=== PATIENT | male | born 1980 | race Caucasian/White ===

== ENCOUNTER 2022-04-04 05:19 | Inpatient (IN) | payer OTHER ==
[2022-04-04] MEDS ORDERED: SODIUM CHLORIDE 0.9% 1,000 ML IV ONE ×2 (06:19)
[2022-04-04] MEDS ORDERED: LORazepam 2 MG/ML INJ IV STA ×3 (06:20→08:29)
[2022-04-04 06:58] LABS: Basophils # (A) 0.1 k/uL (0-0.2); Basophils % (A) 1 %; Eosinophils # (A) 0.1 k/uL (0-0.7); Eosinophils % (A) 1 %; HGB 13.8 gm/dL (13.0-17.5); Lymphocytes # (A) 0.9 k/uL (1.0-4.8); Lymphocytes % (A) 12 %; MCH 32.1 pg (25.0-35.0); MCHC 33.5 g/dL (31.0-37.0); MCV 95.7 fL (80.0-100.0); Mean Platelet Volume 8.1; Monocytes # (A) 0.5 k/uL (0-1.0); Monocytes % (A) 7 %; Neutrophils # (A) 5.8 k/uL (1.3-7.7); Neutrophils % (A) 77 %; Platelet Count 128 k/uL (150-450); RBC 4.29 m/uL (4.30-5.90); RDW 12.4 % (11.5-15.5); WBC 7.6 k/uL (3.8-10.6)
[2022-04-04 07:02] LABS: Appearance,Urine Clear (Clear); Bilirubin,Urine Negative (Negative); Blood,Urine Negative (Negative); Color,Urine Yellow; Glucose,Urine (UA) Negative (Negative); Hyaline Casts,Urine 1 /lpf (0-2); Ketones,Urine 4+ (Negative); Leukocyte Esterase,Urine Negative (Negative); Mucus,Urine Rare /hpf; Nitrite,Urine Negative (Negative); Protein,Urine 1+ (Negative); Specific Gravity,Urine 1.027 (1.001-1.035); WBC,Urine <1 /hpf (0-5)
[2022-04-04 07:14] LABS: ALT 96 U/L (4-49); AST 167 U/L (17-59); African American GFR (CKD) >90 (>60 ml/min/1.73 sqM); Albumin 5.2 g/dL (3.5-5.0); Alcohol <10 mg/dL; Alkaline Phosphatase 59 U/L (38-126); Anion Gap 18 mmol/L; Blood Urea Nitrogen 10 mg/dL (9-20); Calcium 9.5 mg/dL (8.4-10.2); Carbon Dioxide 21 mmol/L (22-30); Chloride 96 mmol/L (98-107); Glucose 93 mg/dL (74-99); Lipase 159 U/L (23-300); Magnesium 1.4 mg/dL (1.6-2.3); Non-African American GFR(CKD) >90 (>60 ml/min/1.73 sqM); Potassium 3.9 mmol/L (3.5-5.1); Sodium 135 mmol/L (137-145); Total Bilirubin 1.9 mg/dL (0.2-1.3); Total Protein 8.9 g/dL (6.3-8.2)
[2022-04-04] MEDS ORDERED: MAGNESIUM SULFATE-D5W PMX 1 GM in DEXTROSE/WATER 1 100ML.BAG IVPB ONE (07:19)
[2022-04-04 07:20] LABS: Cocaine Screen,Urine Not Detected (NotDetected); Phencyclidine Screen,Urine Not Detected (NotDetected); Urn Cannabinoid Scrn Not Detected (NotDetected)
[2022-04-04 07:21] LABS: Amphetamine Screen,Urine Not Detected (NotDetected); Barbiturate Screen,Urine Detected (NotDetected); Benzodiazepines Screen,Urine Not Detected (NotDetected); Methadone Screen, Urine Not Detected (NotDetected); Opiate Screen,Urine Not Detected (NotDetected); Oxycodone Screen, Urine Not Detected (NotDetected); Tricyclic Antidepressant,Urine Not Detected (NotDetected)
--- NOTE | 2022-04-04 07:29 | ED ---
General Adult HPI - General Chief complaint: Altered Mental Status Stated complaint: Hallucinations,Withdrawal Time Seen by Provider: 04/04/22 05:42 Source: patient, EMS, RN notes reviewed Mode of arrival: EMS Limitations: altered mental status - History of Present Illness Initial comments: 41-year-old male presents emergency Department from [facility] for evaluation of alcohol withdrawal, tremors, hallucinations. Patient states that he sat drinking what he believes was 2 weeks ago. Patient went there for rehab alcohol withdrawal. Patient is found to be having severe tremors, has been hallucinating and they refused to give him Ativan as patient reportedly tested positive. He states he isn't sure why he tested positive he is currently on phe nobarbital. States it feels like symptoms are worsening he denies any physical complaints and minimal nausea. - Related Data Home Medications Medication Instructions Recorded Confirmed Acetaminophen Tab [Tylenol] 650 mg PO TID PRN 04/04/22 04/04/22 Calcium/Magnesium/Zinc With 1 tab PO TID 04/04/22 04/04/22 Vitamin D 334/134/5mg Chlorpheniramine Maleate 4 mg PO Q4H PRN 04/04/22 04/04/22 [Chlor-Trimeton] Docusate [Colace] 100 mg PO BID PRN 04/04/22 04/04/22 Hyoscyamine Sulfate [Levsin-Sl] 0.125 mg SL QID PRN 04/04/22 04/04/22 Ibuprofen [Motrin Ib] 600 mg PO Q8H PRN 04/04/22 04/04/22 Loperamide [Imodium] 2 - 4 mg PO QID PRN 04/04/22 04/04/22 Mag Hydrox/Aluminum Hyd/Simeth 30 ml PO Q4H PRN 04/04/22 04/04/22 [Mylanta Maximum Strength Liq] Magnesium Hydroxide [Milk of 2,400 mg PO BID PRN 04/04/22 04/04/22 Magnesia] Multivitamins, Thera [Multivitamin 1 tab PO DAILY PRN 04/04/22 04/04/22 (formulary)] PHENobarbitaL [PHENobarbital] See Taper PO DIRECTED 04/04/22 04/04/22 Thiamine [Vitamin B-1] 100 mg PO DAILY PRN 04/04/22 04/04/22 cloNIDine HCL [Catapres] 0.1 - 0.3 mg PO Q4H 04/04/22 04/04/22 guaiFENesin [guaiFENesin Oral 200 mg PO Q4H PRN 04/04/22 04/04/22 Solution] ondansetron HCL [Zofran] 8 mg PO Q6H PRN 04/04/22 04/04/22 traZODone HCL [Desyrel] 50 - 100 mg PO HS 04/04/22 04/04/22 Allergies Allergy/AdvReac Type Severity Reaction Status Date / Time Penicillins Allergy Rash/Hives Verified 04/04/22 07:17 Review of Systems ROS Statement: Those systems with pertinent positive or pertinent negative responses have been documented in the HPI. ROS Other: All systems not noted in ROS Statement are negative. Past Medical History Past Medical History: No Reported History Past Surgical History: No Surgical Hx Reported Smoking Status: Never smoker Past Alcohol Use History: Heavy Past Drug Use History: None Reported General Exam Limitations: altered mental status General appearance: alert, in no apparent distress Head exam: Present: atraumatic, normocephalic, normal inspection Eye exam: Present: normal appearance, PERRL, EOMI. Absent: scleral icterus, conjunctival injection, periorbital swelling ENT exam: Present: normal exam, normal oropharynx, mucous membranes moist Neck exam: Present: normal inspection, full ROM. Absent: tenderness, meningismus, lymphadenopathy Respiratory exam: Present: normal lung sounds bilaterally. Absent: respiratory distress, wheezes, rales, rhonchi, stridor Cardiovascular Exam: Present: regular rate, normal rhythm, normal heart sounds. Absent: systolic murmur, diastolic murmur, rubs, gallop, clicks Neurological exam: Present: alert, oriented X3, CN II-XII intact Psychiatric exam: Present: anxious Skin exam: Present: warm, dry, intact, normal color. Absent: rash Course Vital Signs 04/04/22 04/04/22 05:23 05:32 Pulse Rate 90 85 Respiratory 18 18 Rate Blood Pressure 115/89 124/92 O2 Sat by Pulse 99 99 Oximetry Medical Decision Making - Lab Data Result diagrams: 04/04/22 06:45 04/04/22 06:45 Lab Results 04/04/22 04/04/22 04/04/22 Range/Units 06:45 06:45 06:45 WBC 7.6 (3.8-10.6) k/uL RBC 4.29 L (4.30-5.90) m/uL Hgb 13.8 (13.0-17.5) gm/dL Hct 41.0 (39.0-53.0) % MCV 95.7 (80.0-100.0) fL MCH 32.1 (25.0-35.0) pg MCHC 33.5 (31.0-37.0) g/dL RDW 12.4 (11.5-15.5) % Plt Count 128 L (150-450) k/uL MPV 8.1 Neutrophils % 77 % Lymphocytes % 12 % Monocytes % 7 % Eosinophils % 1 % Basophils % 1 % Neutrophils # 5.8 (1.3-7.7) k/uL Lymphocytes # 0.9 L (1.0-4.8) k/uL Monocytes # 0.5 (0-1.0) k/uL Eosinophils # 0.1 (0-0.7) k/uL Basophils # 0.1 (0-0.2) k/uL Sodium 135 L (137-145) mmol/L Potassium 3.9 (3.5-5.1) mmol/L Chloride 96 L (98-107) mmol/L Carbon Dioxide 21 L (22-30) mmol/L Anion Gap 18 mmol/L BUN 10 (9-20) mg/dL Creatinine 0.49 L (0.66-1.25) mg/dL Est GFR (CKD-EPI)AfAm >90 (>60 ml/min/1.73 sqM) Est GFR (CKD-EPI)NonAf >90 (>60 ml/min/1.73 sqM) Glucose 93 (74-99) mg/dL Calcium 9.5 (8.4-10.2) mg/dL Magnesium 1.4 L (1.6-2.3) mg/dL Total Bilirubin 1.9 H (0.2-1.3) mg/dL AST 167 H (17-59) U/L ALT 96 H (4-49) U/L Alkaline Phosphatase 59 (38-126) U/L Ammonia (<30) umol/L Total Protein 8.9 H (6.3-8.2) g/dL Albumin 5.2 H (3.5-5.0) g/dL Lipase 159 (23-300) U/L Urine Color Yellow Urine Appearance Clear (Clear) Urine pH 7.0 (5.0-8.0) Ur Specific [place] 1.027 (1.001-1.035) Urine Protein 1+ H (Negative) Urine Glucose (UA) Negative (Negative) Urine Ketones 4+ H (Negative) Urine Blood Negative (Negative) Urine Nitrite Negative (Negative) Urine Bilirubin Negative (Negative) Urine Urobilinogen 2.0 (<2.0) mg/dL Ur Leukocyte Esterase Negative (Negative) Urine WBC <1 (0-5) /hpf Hyaline Casts 1 (0-2) /lpf Urine Mucus Rare H (None) /hpf Urine Opiates Screen Not Detected (NotDetected) Ur Oxycodone Screen Not Detected (NotDetected) Urine Methadone Screen Not Detected (NotDetected) Ur Propoxyphene Screen Not Detected (NotDetected) Ur Barbiturates Screen Detected H (NotDetected) U Tricyclic Antidepress Not Detected (NotDetected) Ur Phencyclidine Scrn Not Detected (NotDetected) Ur Amphetamines Screen Not Detected (NotDetected) U Methamphetamines Scrn Not Detected (NotDetected) U Benzodiazepines Scrn Not Detected (NotDetected) Urine Cocaine Screen Not Detected (NotDetected) U Marijuana (THC) Screen Not Detected (NotDetected) Serum Alcohol <10 mg/dL 04/04/22 Range/Units 06:45 WBC (3.8-10.6) k/uL RBC (4.30-5.90) m/uL Hgb (13.0-17.5) gm/dL Hct (39.0-53.0) % MCV (80.0-100.0) fL MCH (25.0-35.0) pg MCHC (31.0-37.0) g/dL RDW (11.5-15.5) % Plt Count (150-450) k/uL MPV Neutrophils % % Lymphocytes % % Monocytes % % Eosinophils % % Basophils % % Neutrophils # (1.3-7.7) k/uL Lymphocytes # (1.0-4.8) k/uL Monocytes # (0-1.0) k/uL Eosinophils # (0-0.7) k/uL Basophils # (0-0.2) k/uL Sodium (137-145) mmol/L Potassium (3.5-5.1) mmol/L Chloride (98-107) mmol/L Carbon Dioxide (22-30) mmol/L Anion Gap mmol/L BUN (9-20) mg/dL Creatinine (0.66-1.25) mg/dL Est GFR (CKD-EPI)AfAm (>60 ml/min/1.73 sqM) Est GFR (CKD-EPI)NonAf (>60 ml/min/1.73 sqM) Glucose (74-99) mg/dL Calcium (8.4-10.2) mg/dL Magnesium (1.6-2.3) mg/dL Total Bilirubin (0.2-1.3) mg/dL AST (17-59) U/L ALT (4-49) U/L Alkaline Phosphatase (38-126) U/L Ammonia <9 (<30) umol/L Total Protein (6.3-8.2) g/dL Albumin (3.5-5.0) g/dL Lipase (23-300) U/L Urine Color Urine Appearance (Clear) Urine pH (5.0-8.0) Ur Specific [place] (1.001-1.035) Urine Protein (Negative) Urine Glucose (UA) (Negative) Urine Ketones (Negative) Urine Blood (Negative) Urine Nitrite (Negative) Urine Bilirubin (Negative) Urine Urobilinogen (<2.0) mg/dL Ur Leukocyte Esterase (Negative) Urine WBC (0-5) /hpf Hyaline Casts (0-2) /lpf Urine Mucus (None) /hpf Urine Opiates Screen (NotDetected) Ur Oxycodone Screen (NotDetected) Urine Methadone Screen (NotDetected) Ur Propoxyphene Screen (NotDetected) Ur Barbiturates Screen (NotDetected) U Tricyclic Antidepress (NotDetected) Ur Phencyclidine Scrn (NotDetected) Ur Amphetamines Screen (NotDetected) U Methamphetamines Scrn (NotDetected) U Benzodiazepines Scrn (NotDetected) Urine Cocaine Screen (NotDetected) U Marijuana (THC) Screen (NotDetected) Serum Alcohol mg/dL Disposition Clinical Impression: Delirium tremens, Alcohol withdrawal, Hypomagnesemia Disposition: ADMITTED IP TO THIS HOSP Condition: Fair Referrals: Nonstaff,Physician [Primary Care Provider] - 1-2 days Time of Disposition: 07:49
[2022-04-04] MEDS ORDERED: LORazepam 2 MG/ML INJ IV PRN (07:51)
[2022-04-04] MEDS ORDERED: THIAMINE 100 MG/ML 2 ML VIAL IM STA (07:51)
[2022-04-04] MEDS ORDERED: ONDANSETRON 4 MG/2 ML VIAL IVP PRN (08:07)
[2022-04-04] MEDS ORDERED: NALOXONE 0.4 MG/ML 1 ML VIAL IV PRN (08:07)
--- NOTE | 2022-04-04 08:58 | ED ---
Medical Decision Making - Lab Data Result diagrams: 04/04/22 06:45 04/04/22 06:45 Lab Results 04/04/22 04/04/22 04/04/22 Range/Units 06:45 06:45 06:45 WBC 7.6 (3.8-10.6) k/uL RBC 4.29 L (4.30-5.90) m/uL Hgb 13.8 (13.0-17.5) gm/dL Hct 41.0 (39.0-53.0) % MCV 95.7 (80.0-100.0) fL MCH 32.1 (25.0-35.0) pg MCHC 33.5 (31.0-37.0) g/dL RDW 12.4 (11.5-15.5) % Plt Count 128 L (150-450) k/uL MPV 8.1 Neutrophils % 77 % Lymphocytes % 12 % Monocytes % 7 % Eosinophils % 1 % Basophils % 1 % Neutrophils # 5.8 (1.3-7.7) k/uL Lymphocytes # 0.9 L (1.0-4.8) k/uL Monocytes # 0.5 (0-1.0) k/uL Eosinophils # 0.1 (0-0.7) k/uL Basophils # 0.1 (0-0.2) k/uL Sodium 135 L (137-145) mmol/L Potassium 3.9 (3.5-5.1) mmol/L Chloride 96 L (98-107) mmol/L Carbon Dioxide 21 L (22-30) mmol/L Anion Gap 18 mmol/L BUN 10 (9-20) mg/dL Creatinine 0.49 L (0.66-1.25) mg/dL Est GFR (CKD-EPI)AfAm >90 (>60 ml/min/1.73 sqM) Est GFR (CKD-EPI)NonAf >90 (>60 ml/min/1.73 sqM) Glucose 93 (74-99) mg/dL Calcium 9.5 (8.4-10.2) mg/dL Magnesium 1.4 L (1.6-2.3) mg/dL Total Bilirubin 1.9 H (0.2-1.3) mg/dL AST 167 H (17-59) U/L ALT 96 H (4-49) U/L Alkaline Phosphatase 59 (38-126) U/L Ammonia (<30) umol/L Total Protein 8.9 H (6.3-8.2) g/dL Albumin 5.2 H (3.5-5.0) g/dL Lipase 159 (23-300) U/L Urine Color Yellow Urine Appearance Clear (Clear) Urine pH 7.0 (5.0-8.0) Ur Specific [place] 1.027 (1.001-1.035) Urine Protein 1+ H (Negative) Urine Glucose (UA) Negative (Negative) Urine Ketones 4+ H (Negative) Urine Blood Negative (Negative) Urine Nitrite Negative (Negative) Urine Bilirubin Negative (Negative) Urine Urobilinogen 2.0 (<2.0) mg/dL Ur Leukocyte Esterase Negative (Negative) Urine WBC <1 (0-5) /hpf Hyaline Casts 1 (0-2) /lpf Urine Mucus Rare H (None) /hpf Urine Opiates Screen Not Detected (NotDetected) Ur Oxycodone Screen Not Detected (NotDetected) Urine Methadone Screen Not Detected (NotDetected) Ur Propoxyphene Screen Not Detected (NotDetected) Ur Barbiturates Screen Detected H (NotDetected) U Tricyclic Antidepress Not Detected (NotDetected) Ur Phencyclidine Scrn Not Detected (NotDetected) Ur Amphetamines Screen Not Detected (NotDetected) U Methamphetamines Scrn Not Detected (NotDetected) U Benzodiazepines Scrn Not Detected (NotDetected) Urine Cocaine Screen Not Detected (NotDetected) U Marijuana (THC) Screen Not Detected (NotDetected) Serum Alcohol <10 mg/dL 04/04/22 Range/Units 06:45 WBC (3.8-10.6) k/uL RBC (4.30-5.90) m/uL Hgb (13.0-17.5) gm/dL Hct (39.0-53.0) % MCV (80.0-100.0) fL MCH (25.0-35.0) pg MCHC (31.0-37.0) g/dL RDW (11.5-15.5) % Plt Count (150-450) k/uL MPV Neutrophils % % Lymphocytes % % Monocytes % % Eosinophils % % Basophils % % Neutrophils # (1.3-7.7) k/uL Lymphocytes # (1.0-4.8) k/uL Monocytes # (0-1.0) k/uL Eosinophils # (0-0.7) k/uL Basophils # (0-0.2) k/uL Sodium (137-145) mmol/L Potassium (3.5-5.1) mmol/L Chloride (98-107) mmol/L Carbon Dioxide (22-30) mmol/L Anion Gap mmol/L BUN (9-20) mg/dL Creatinine (0.66-1.25) mg/dL Est GFR (CKD-EPI)AfAm (>60 ml/min/1.73 sqM) Est GFR (CKD-EPI)NonAf (>60 ml/min/1.73 sqM) Glucose (74-99) mg/dL Calcium (8.4-10.2) mg/dL Magnesium (1.6-2.3) mg/dL Total Bilirubin (0.2-1.3) mg/dL AST (17-59) U/L ALT (4-49) U/L Alkaline Phosphatase (38-126) U/L Ammonia <9 (<30) umol/L Total Protein (6.3-8.2) g/dL Albumin (3.5-5.0) g/dL Lipase (23-300) U/L Urine Color Urine Appearance (Clear) Urine pH (5.0-8.0) Ur Specific [place] (1.001-1.035) Urine Protein (Negative) Urine Glucose (UA) (Negative) Urine Ketones (Negative) Urine Blood (Negative) Urine Nitrite (Negative) Urine Bilirubin (Negative) Urine Urobilinogen (<2.0) mg/dL Ur Leukocyte Esterase (Negative) Urine WBC (0-5) /hpf Hyaline Casts (0-2) /lpf Urine Mucus (None) /hpf Urine Opiates Screen (NotDetected) Ur Oxycodone Screen (NotDetected) Urine Methadone Screen (NotDetected) Ur Propoxyphene Screen (NotDetected) Ur Barbiturates Screen (NotDetected) U Tricyclic Antidepress (NotDetected) Ur Phencyclidine Scrn (NotDetected) Ur Amphetamines Screen (NotDetected) U Methamphetamines Scrn (NotDetected) U Benzodiazepines Scrn (NotDetected) Urine Cocaine Screen (NotDetected) U Marijuana (THC) Screen (NotDetected) Serum Alcohol mg/dL Disposition Clinical Impression: Delirium tremens, Alcohol withdrawal, Hypomagnesemia Disposition: ADMITTED IP TO THIS [facility] Condition: Fair Procedures - Restraint - Face to Face Restraint Occurrence 1 Patient's Immediate Situation: Endangers self safety, Endangers staff safety Patient's Reaction to the Intervention: Uncooperative Patient's Medical & Behavioral Condition: Awake, Alert, Confused, Visual hallucinations Need to Continue or Terminate Restraint or Seclusion: Continue Face to Face Eval of Restraint Date: 04/04/22 Face to Face Eval of Restraint Time: 08:51
[2022-04-04] MEDS ORDERED: diazePAM 5 MG TAB PO PRN ×2 (09:49→22:50)
[2022-04-04] MEDS ORDERED: diazePAM 5 MG TAB PO STA (09:49)
--- NOTE | 2022-04-04 09:59 | P.HPIM ---
History of Present Illness This is a pleasant 41 years old male with no known past medical history was sent from [place] for alcohol withdrawal. Patient is confused and poor historian and could not provide information it was obtained from the staff from the medical records. Looks like he is last drink was about 2 weeks ago and he went for [place] for alcohol rehab but because of difficulty controlling his withdrawal symptoms including tremor and hallucinating besides the incorporation by the patient and refusing to take medication he was sent to this facility. Also there was concerns about his urine test positive for phenobarbitone. When I saw the patient in the emergency room 13 he was very confused, he thought his brother and mom lives in this place but later on he coul tell that this is [facility] but thought it is in the [place]. He thought it is 2013 and he thought the president is open,. Other than that he could not provide information for example from where he came in, and how much he was drinking. However patient was in restraints and he was agitated and trying to get out all the time, he denies any specific symptom to me he denied headache chest pain or abdominal pain no coughing, no urinary problem, no weakness numbness, no blurred vision He denies smoking to me, denies illicit drugs. Vitals are stable. Platelet count 128, trace of CBC is unremarkable, Sodium 135, creatinine low at 0.4. Bilirubin is elevated at 1.9 and AST was 67 and ALT 96 which are both elevated. Lipase is normal at 159. And urinalysis is suspicious for infection. Screen is positive for barbiturates secreting. Serum alcohol less than 10. Currently there is a sitter at bedside Review of Systems Review of systems CONSTITUTIONAL: No fever, no malaise, no fatigue. HEENT: No recent visual problems or hearing problems. Denied any sore throat. CARDIOVASCULAR: No orthopnea, PND, no palpitations, no syncope. PULMONARY: No shortness of breath, no cough, no hemoptysis. GASTROINTESTINAL: No diarrhea, no nausea, no vomiting, no abdominal pain. Normoactive bowel sounds. NEUROLOGICAL: No headaches, no weakness, no numbness. HEMATOLOGICAL: Denies any bleeding or petechiae. GENITOURINARY: Denies any burning micturition, frequency, or urgency. MUSCULOSKELETAL/RHEUMATOLOGICAL: Denies any joint pain, swelling, or any muscle pain. ENDOCRINE: Denies any polyuria or polydipsia. Past Medical History Past Medical History: No Reported History Past Surgical History: No Surgical Hx Reported Smoking Status: Never smoker Past Alcohol Use History: Heavy Past Drug Use History: None Reported Medications and Allergies Home Medications Medication Instructions Recorded Confirmed Type Acetaminophen Tab [Tylenol] 650 mg PO TID PRN 04/04/22 04/04/22 History Calcium/Magnesium/Zinc With 1 tab PO TID 04/04/22 04/04/22 History Vitamin D 334/134/5mg Chlorpheniramine Maleate 4 mg PO Q4H PRN 04/04/22 04/04/22 History [Chlor-Trimeton] Docusate [Colace] 100 mg PO BID PRN 04/04/22 04/04/22 History Hyoscyamine Sulfate [Levsin-Sl] 0.125 mg SL QID PRN 04/04/22 04/04/22 History Ibuprofen [Motrin Ib] 600 mg PO Q8H PRN 04/04/22 04/04/22 History Loperamide [Imodium] 2 - 4 mg PO QID PRN 04/04/22 04/04/22 History Mag Hydrox/Aluminum Hyd/Simeth 30 ml PO Q4H PRN 04/04/22 04/04/22 History [Mylanta Maximum Strength Liq] Magnesium Hydroxide [Milk of 2,400 mg PO BID PRN 04/04/22 04/04/22 History Magnesia] Multivitamins, Thera [Multivitamin 1 tab PO DAILY PRN 04/04/22 04/04/22 History (formulary)] PHENobarbitaL [PHENobarbital] See Taper PO DIRECTED 04/04/22 04/04/22 History Thiamine [Vitamin B-1] 100 mg PO DAILY PRN 04/04/22 04/04/22 History cloNIDine HCL [Catapres] 0.1 - 0.3 mg PO Q4H 04/04/22 04/04/22 History guaiFENesin [guaiFENesin Oral 200 mg PO Q4H PRN 04/04/22 04/04/22 History Solution] ondansetron HCL [Zofran] 8 mg PO Q6H PRN 04/04/22 04/04/22 History traZODone HCL [Desyrel] 50 - 100 mg PO HS 04/04/22 04/04/22 History Allergies Allergy/AdvReac Type Severity Reaction Status Date / Time Penicillins Allergy Rash/Hives Verified 04/04/22 07:17 Physical Exam Vitals: Vital Signs Pulse Resp BP Pulse Ox 04/04/22 05:32 85 18 124/92 99 04/04/22 05:23 90 18 115/89 99 Intake and Output 04/03/22 04/04/22 04/04/22 22:59 06:59 14:59 Other: Weight 72.575 kg -GENERAL: The patient is awake confused, agitated and on the restraints. Well developed, well nourished. HEENT: Pupils are round and equally reacting to light. EOMI. No scleral icterus. No conjunctival pallor. Normocephalic, atraumatic. No pharyngeal erythema. No thyromegaly. CARDIOVASCULAR: S1 and S2 present. No murmurs, rubs, or gallops. PULMONARY: Chest is clear to auscultation, no wheezing or crackles. ABDOMEN: Soft, nontender, nondistended, normoactive bowel sounds. No palpable organomegaly. MUSCULOSKELETAL: No joint swelling or deformity. EXTREMITIES: No cyanosis, clubbing, or pedal edema. NEUROLOGICAL: Gross neurological examination did not reveal any focal deficits. SKIN: No rashes. no petechiae. Results CBC & Chem 7: 04/04/22 06:45 04/04/22 06:45 Labs: Abnormal Lab Results - Last 24 Hours (Table) 04/04/22 04/04/22 04/04/22 Range/Units 06:45 06:45 06:45 RBC 4.29 L (4.30-5.90) m/uL Plt Count 128 L (150-450) k/uL Lymphocytes # 0.9 L (1.0-4.8) k/uL Sodium 135 L (137-145) mmol/L Chloride 96 L (98-107) mmol/L Carbon Dioxide 21 L (22-30) mmol/L Creatinine 0.49 L (0.66-1.25) mg/dL Magnesium 1.4 L (1.6-2.3) mg/dL Total Bilirubin 1.9 H (0.2-1.3) mg/dL AST 167 H (17-59) U/L ALT 96 H (4-49) U/L Total Protein 8.9 H (6.3-8.2) g/dL Albumin 5.2 H (3.5-5.0) g/dL Urine Protein 1+ H (Negative) Urine Ketones 4+ H (Negative) Urine Mucus Rare H (None) /hpf Ur Barbiturates Screen Detected H (NotDetected) Assessment and Plan Assessment: Alcohol use disorder with severe delirium tremens Hallucination and agitation secondary to above, rule out intracranial lesions. Altered mental status secondary to metabolic/toxic encephalopathy secondary to both Alcoholic transaminitis Thrombocytopenia most likely secondary to alcohol affect Plan: Continue with IV hydration Continue with vitamins including Continue with CIWA protocol Continue with volume IV when necessary replace Rx was per protocol We'll do a CT of the brain to rule out intracranial lesion Sitter at bedside or safety Psychiatric team were consulted Labs and medication were reviewed.. Continue same treatment. Continue with symptomatic treatment. Resume home medication. Monitor labs and vitals. DVT and GI prophylaxis. Further recommendations as per clinical course of the patient DVT prophylaxis: Subcutaneous heparin pending CT of the brain) ( GI Prophylaxis: Pepcid Prognosis is guarded
[2022-04-04] MEDS: LORazepam 2 MG/ML INJ IV PRN ×8 (10:12→23:40)
[2022-04-04] MEDS: SODIUM CHLORIDE 0.9% 1,000 ML IV SCH ×3 (10:38→23:29)
[2022-04-04] MEDS: chlordiazePOXIDE 25 MG CAP PO SCH (21:08)
--- NOTE | 2022-04-05 00:31 | CT ---
EXAMINATION TYPE: CT brain wo con DATE OF EXAM: 04/04/2022 COMPARISON: None HISTORY: CONFUSION, ETOH W/D, DTs CT DLP: 1143 mGycm Automated exposure control for dose reduction was used. Images obtained of the brain with no contrast. Ventricles have normal size. There is no mass effect nor midline shift. No sign of intracranial hemor rhage. Calvarium is intact. Skull base is intact. There is normal aeration of the mastoid sinuses. IMPRESSION: Negative unenhanced head CT scan. Mucous retention cysts are noted in both maxillary sinuses.
[2022-04-05 01:26] LABS: Glucose,Whole Blood 96 mg/dL (70-110)
--- NOTE | 2022-04-05 02:19 | CONS ---
DATE OF SERVICE: 04/04/2022 CONSULTATION Psychiatric Consultation REASON FOR CONSULTATION: Evaluate for delirium tremens. HISTORY OF PRESENTING ILLNESS: The patient is a 41-year-old male. According to the history of Dr. Gay, he presented as referral from [place]. He had stopped drinking about 2 weeks ago. He went in to [place] for alcohol rehab. In [place], he was having significant withdrawal symptoms including tremor and hallucinations, he was refusing medications. Urine drug screen did test positive for barbiturates. He was transferred to the ED for evaluation. Since in the ED, the patient has been confused and very disoriented. He is not able to provide any reliable information. As per Dr. Gay, he thought his mother and brother lived where he was at, but apparently he said it was [facility] but thought it was [place], thought it was [facility]. In the ED, he has been in a very restless and agitated state requiring restraints to protect his safety. Vital signs have been in the normal range, for the most part lab work is unremarkable. MENTAL STATUS EXAMINATION: When I saw the patient, he was sitting up in the hospital bed with hands and legs restrained. He was quite restless. He said various words though he did not say anything that was coded. He did not respond to any questions that I asked, even very basic questions such as where did he think he was at. He was awake and fairly alert though did not seem to be able to focus on anything in particular. He could put 2 or 3 words together in a phrase though was not able to communicate in complete sentences. Most of what he said was random with one thought disconnected from the next. ASSESSMENT: According to medical record, the patient would have stopped alcohol use about 2 weeks ago. Thus in general this would be beyond the stage for the patient to be suffering from alcohol related delirium tremens. Typically delirium tremens presents in the first 48 hours and resolves in 3 to 5 days with some cases extending up to 8 or 10 days. There is a question that he may have urinary tract infection and infections can prolong DTs. A second consideration is that he may have a delirium tremens relating to barbiturate withdrawal. They had no information in regard to barbiturate exposure though delirium tremens relating to barbiturate withdrawal can last over couple of weeks or more. For the most part, his vital signs are stable. I did advise the nurse to monitor temperature and for diaphoresis which are the 2 critical signs relating to detox and DTs. Might be consideration from switching the patient from Ativan to phenobarbital and to initiate a phenobarbital taper as his presentation would be more likely related to barbiturate withdrawal if he was using a barbiturate where such as phenobarbital the period of withdrawal, detox, and delirium tremens can be quite prolonged. At this point, it is not clear that there is further need for psychiatric intervention as the primary issue is related to detox, at least reconsult psychiatry as additional concerns arise. MMODL / IJN: [id number] / JOANNA
[2022-04-05 04:55] LABS: Basophils % (A) 1 %; Eosinophils # (A) 0.1 k/uL (0-0.7); Eosinophils % (A) 2 %; HCT 35.2 % (39.0-53.0); HGB 11.9 gm/dL (13.0-17.5); Lymphocytes # (A) 0.9 k/uL (1.0-4.8); Lymphocytes % (A) 14 %; MCH 32.5 pg (25.0-35.0); MCHC 33.8 g/dL (31.0-37.0); Mean Platelet Volume 8.2; Monocytes # (A) 0.7 k/uL (0-1.0); Monocytes % (A) 10 %; Neutrophils # (A) 4.5 k/uL (1.3-7.7); Neutrophils % (A) 70 %; Platelet Count 123 k/uL (150-450); RBC 3.67 m/uL (4.30-5.90); WBC 6.4 k/uL (3.8-10.6)
[2022-04-05 05:11] LABS: ALT 79 U/L (4-49); AST 132 U/L (17-59); African American GFR (CKD) >90 (>60 ml/min/1.73 sqM); Alkaline Phosphatase 45 U/L (38-126); Anion Gap 13 mmol/L; Bilirubin, Delta 0.5 mg/dL (0.0-0.2); Bilirubin,Unconjugated 0.7 mg/dL (0.0-1.1); Blood Urea Nitrogen 5 mg/dL (9-20); Carbon Dioxide 20 mmol/L (22-30); Chloride 104 mmol/L (98-107); Glucose 84 mg/dL (74-99); Magnesium 1.6 mg/dL (1.6-2.3); Non-African American GFR(CKD) >90 (>60 ml/min/1.73 sqM); Potassium 3.4 mmol/L (3.5-5.1); Sodium 137 mmol/L (137-145); Total Bilirubin 1.2 mg/dL (0.2-1.3); Total Protein 6.8 g/dL (6.3-8.2)
[2022-04-05] MEDS ORDERED: Potassium Replacement Protocol 1 EACH MISC MISCELLANE PRN (05:14)
[2022-04-05] MEDS ORDERED: Magnesium Replacement Protocol 1 EACH MISC MISCELLANE PRN (05:15)
[2022-04-05] MEDS: MAGNESIUM SULFATE-D5W PMX 1 GM in DEXTROSE/WATER 1 100ML.BAG IVPB SCH ×2 (05:35→06:52)
[2022-04-05] MEDS: POTASSIUM CHLORIDE ER 20 MEQ TAB.ER PO SCH ×2 (05:35→06:52)
[2022-04-05] MEDS: SODIUM CHLORIDE 0.9% 1,000 ML IV SCH ×3 (07:26→21:37)
[2022-04-05 07:47] LABS: Appearance,Urine Clear (Clear); Bilirubin,Urine Negative (Negative); Blood,Urine Negative (Negative); Color,Urine Yellow; Glucose,Urine (UA) Negative (Negative); Ketones,Urine 3+ (Negative); Leukocyte Esterase,Urine Negative (Negative); Nitrite,Urine Negative (Negative); Protein,Urine Negative (Negative); Specific Gravity,Urine 1.018 (1.001-1.035)
[2022-04-05] MEDS: THIAMINE 100 MG/ML 2 ML VIAL IVP SCH (08:29)
[2022-04-05] MEDS: chlordiazePOXIDE 25 MG CAP PO SCH ×2 (08:29→13:09)
[2022-04-05] MEDS ORDERED: THIAMINE 100 MG TAB PO SCH (09:00)
[2022-04-05] MEDS: LORazepam 2 MG/ML INJ IV PRN ×2 (11:59→20:17)
--- NOTE | 2022-04-05 12:54 | P.CNPUL ---
History of Present Illness Consult date: 04/05/22 Requesting physician: Henrique Gay Reason for consult: other Chief complaint: acute alcohol withdrawal History of present illness: this is a 41-year-old white male, known history of alcohol abuse, patient was sent from [place] for alcohol withdrawal. Patient has been demonstrating episodes of confusion, agitation, and at times tremors and hallucinations. Patient apparently was refusing to take medications at the facility where he was sent from.patient was brought into the ER, and apparently he was quite confused, he was requiring restraints, was extremely agitated, his labs were basically unremarkable. Patient tested positive for barbiturates. His alcohol level was less than 10. Patient was admitted to the ICU mostly because he was requiring significant amount of sedation to calm him down, I saw him this morning, the patient seems to be calm, much better compared to how he was described to be on admission. Patient remains on the CIWA protocol, in no distress. He is alert oriented 3, and clearly not agitated but slightly anxious. Review of Systems CONSTITUTIONAL: negative. HEENT: negative. CARDIOVASCULAR: negative PULMONARY: no shortness of breath cough or wheezing no chest pain.. GASTROINTESTINAL: no nausea vomiting abdominal pain melena or hematemesis. NEUROLOGICAL: negative.. HEMATOLOGICAL: negative. GENITOURINARY: negative MUSCULOSKELETAL/RHEUMATOLOGICAL: negative.. ENDOCRINE:negative Past Medical History Past Medical History: No Reported History History of Any Multi-Drug Resistant Organisms: None Reported Past Surgical History: No Surgical Hx Reported Additional Past Surgical History / Comment(s): Inginal hernia repair Smoking Status: Never smoker Medications and Allergies Home Medications Medication Instructions Recorded Confirmed Type Acetaminophen Tab [Tylenol] 650 mg PO TID PRN 04/04/22 04/04/22 History Calcium/Magnesium/Zinc With 1 tab PO TID 04/04/22 04/04/22 History Vitamin D 334/134/5mg Chlorpheniramine Maleate 4 mg PO Q4H PRN 04/04/22 04/04/22 History [Chlor-Trimeton] Docusate [Colace] 100 mg PO BID PRN 04/04/22 04/04/22 History Hyoscyamine Sulfate [Levsin-Sl] 0.125 mg SL QID PRN 04/04/22 04/04/22 History Ibuprofen [Motrin Ib] 600 mg PO Q8H PRN 04/04/22 04/04/22 History Loperamide [Imodium] 2 - 4 mg PO QID PRN 04/04/22 04/04/22 History Mag Hydrox/Aluminum Hyd/Simeth 30 ml PO Q4H PRN 04/04/22 04/04/22 History [Mylanta Maximum Strength Liq] Magnesium Hydroxide [Milk of 2,400 mg PO BID PRN 04/04/22 04/04/22 History Magnesia] Multivitamins, Thera [Multivitamin 1 tab PO DAILY PRN 04/04/22 04/04/22 History (formulary)] PHENobarbitaL [PHENobarbital] See Taper PO DIRECTED 04/04/22 04/04/22 History Thiamine [Vitamin B-1] 100 mg PO DAILY PRN 04/04/22 04/04/22 History cloNIDine HCL [Catapres] 0.1 - 0.3 mg PO Q4H 04/04/22 04/04/22 History guaiFENesin [guaiFENesin Oral 200 mg PO Q4H PRN 04/04/22 04/04/22 History Solution] ondansetron HCL [Zofran] 8 mg PO Q6H PRN 04/04/22 04/04/22 History traZODone HCL [Desyrel] 50 - 100 mg PO HS 04/04/22 04/04/22 History Allergies Allergy/AdvReac Type Severity Reaction Status Date / Time Penicillins Allergy Rash/Hives Verified 04/04/22 07:17 Physical Exam Vitals: Vital Signs Temp Pulse Resp BP BP Pulse Ox 04/05/22 12:00 88 22 117/94 99 04/05/22 11:49 98.6 F 04/05/22 11:00 91 14 125/89 95 04/05/22 10:00 79 16 125/112 98 04/05/22 09:00 80 16 124/87 98 04/05/22 08:00 98.2 F 85 22 124/87 98 04/05/22 07:00 97 15 145/118 94 L 04/05/22 06:09 98.5 F 145/118 96 04/05/22 06:00 89 20 123/84 95 04/05/22 05:00 80 22 120/91 95 04/05/22 04:00 98.1 F 74 24 120/91 96 04/05/22 03:00 76 22 122/82 95 04/05/22 02:00 85 27 H 127/82 96 04/05/22 01:25 99.7 F H 132/101 04/05/22 00:51 98.8 F 88 18 167/95 98 04/04/22 23:22 82 18 97 04/04/22 22:42 98.0 F 85 18 157/82 98 04/04/22 18:00 109 H 18 148/86 98 Intake and Output 04/04/22 04/05/22 04/05/22 22:59 06:59 14:59 Intake Total 750 1618 Output Total 0 550 Balance 750 1068 Intake: IV 750 900 Invasive Line 2 20 Magnesium Sulfate-D5w Pmx 100 100 1 gm In Dextrose/Water 1 100ml.bag @ 100 mls/hr IVPB ONCE ONE Rx#: [id number] Sodium Chloride 0.9% 1, 650 780 000 ml @ 130 mls/hr IV . Q7H42M [facility] Rx#:[id number] Oral 718 Output: Urine 0 550 Other: Voiding Method Urinal Urinal # Bowel Movements 0 Weight 72.575 kg Physical Exam: Revealed 41-year-old white male in no distress. Head: Atraumatic normocephalic. HEENT:[Neck is supple.] [No neck masses.] [No thyromegaly.] [No JVD.] Chest: [Clear throughout, no crackles, no rhonchi, no wheezes.] Cardiac Exam: [Normal S1 and S2, no S3 gallop, no murmur.] Abdomen: [Soft, nontender, no megaly, no rebound, no guarding, normal bowel sounds.] Extremities: [No clubbing, no edema, no cyanosis.] Neurological Exam: alert and oriented 3.[No focal neurologic deficit.] psychiatric: Slightly anxious, normal affect, and normal mental status examination. Skin: No rashes Results - Laboratory Findings CBC and BMP: 04/05/22 04:28 04/05/22 09:03 Abnormal lab findings: Abnormal Labs 04/04/22 04/04/22 04/04/22 06:45 06:45 06:45 RBC 4.29 L Hgb Hct Plt Count 128 L Lymphocytes # 0.9 L Sodium 135 L Potassium Chloride 96 L Carbon Dioxide 21 L BUN Creatinine 0.49 L Calcium Magnesium 1.4 L Total Bilirubin 1.9 H Delta Bilirubin AST 167 H ALT 96 H Total Protein 8.9 H Albumin 5.2 H Urine Protein 1+ H Urine Ketones 4+ H Urine Mucus Rare H Ur Barbiturates Screen Detected H 04/05/22 04/05/22 04/05/22 04:28 04:28 06:45 RBC 3.67 L Hgb 11.9 L Hct 35.2 L Plt Count 123 L Lymphocytes # 0.9 L Sodium Potassium 3.4 L Chloride Carbon Dioxide 20 L BUN 5 L Creatinine 0.50 L Calcium 8.0 L Magnesium Total Bilirubin Delta Bilirubin 0.5 H AST 132 H ALT 79 H Total Protein Albumin Urine Protein Urine Ketones 3+ H Urine Mucus Ur Barbiturates Screen - Diagnostic Findings Additional studies: CT brain on admission was basically unremarkable. Assessment and Plan Assessment: impression: Acute alcohol withdrawal Acute delirium tremens Thrombocytopenia secondary to chronic alcohol use. Recommendation: Continue to monitor in the ICU. Continue CIWA protocol. Continue IV fluids. Psychiatry did see on consultation. GI and DVT prophylaxis. We'll continue to follow while in ICU Time with Patient: Greater than 30
[2022-04-05] MEDS ORDERED: chlordiazePOXIDE 25 MG CAP PO SCH ×2 (16:45→22:00)
[2022-04-05] MEDS: HEPARIN SODIUM,PORCINE/PF 5,000 UNIT/0.5 ML SYRINGE SQ SCH (16:56)
[2022-04-05] MEDS ORDERED: POTASSIUM CHLORIDE ER 20 MEQ TAB.ER PO SCH (17:00)
[2022-04-05] MEDS: PANTOPRAZOLE 40 MG/10 ML VIAL IVP SCH (21:36)
--- NOTE | 2022-04-05 21:58 | P.PN ---
Subjective This is a pleasant 41 years old male with no known past medical history was sent from [facility] for alcohol withdrawal. Patient is confused and poor historian and could not provide information it was obtained from the staff from the medical records. Looks like he is last drink was about 2 weeks ago and he went for [facility] for alcohol rehab but because of difficulty controlling his withdrawal symptoms including tremor and hallucinating besides the incorporation by the patient and refusing to take medication he was sent to this facility. Also there was concerns about his urine test positive for phenobarbitone. When I saw the patient in the emergency room 13 he was very confused, he thought his brother and mom lives in this place but later on he coul tell that this is [facility] but thought it is in the [place]. He thought it is 2013 and he thought the president is open,. Other than that he could not provide information for example from where he came in, and how much he was drinking. However patient was in restraints and he was agitated and trying to get out all the time, he denies any specific symptom to me he denied headache chest pain or abdominal pain no coughing, no urinary problem, no weakness numbness, no blurred vision He denies smoking to me, denies illicit drugs. Vitals are stable. Platelet count 128, trace of CBC is unremarkable, Sodium 135, creatinine low at 0.4. Bilirubin is elevated at 1.9 and AST was 67 and ALT 96 which are both elevated. Lipase is normal at 159. And urinalysis is suspicious for infection. Screen is positive for barbiturates secreting. Serum alcohol less than 10. Currently there is a sitter at bedside 04/05/2022 Patient is more awake, more calm he is fully awake and oriented and medication back to normal, no hallucination no agitation. He has normal conversation Recent taken off no sitter at bedside. He still have some withdrawal symptoms leg tremor jitteriness and anxiety. But he is not Muslim himself and others anymore. Labs looks better, platelet 123 liver enzymes trending down as well as bilirubin. CIWA scored is improving with a range of 0-13. He has low-grade temp 9.7 with no evidence of infection so far Remains on CIWA protocol, Librium increased to 50 mg 3 times a day, he is on subcutaneous heparin and Protonix twice a day Psychiatric and pulmonary input is appreciated We'll keep monitoring in the ICU for now Objective - Vital Signs Vital signs: Vital Signs Temp 98.6 F 04/05/22 20:00 Pulse 73 04/05/22 21:00 Resp 16 04/05/22 21:00 BP 136/98 04/05/22 21:00 Pulse Ox 96 04/05/22 21:00 FiO2 Intake & Output 04/05/22 04/05/22 04/06/22 06:59 18:59 06:59 Intake Total 750 2408 770 Output Total 0 1250 300 Balance 750 1158 470 Weight 72.575 kg Intake: IV 750 1690 530 Invasive Line 2 30 10 Magnesium Sulfate-D5w Pmx 100 100 1 gm In Dextrose/Water 1 100ml.bag @ 100 mls/hr IVPB ONCE ONE Rx#: [id number] Sodium Chloride 0.9% 1, 650 1560 520 000 ml @ 130 mls/hr IV . Q7H42M [facility] Rx#:[id number] Oral 718 240 Output: Urine 0 1250 300 Other: Voiding Method Urinal External Catheter External Catheter # Bowel Movements 1 0 - Exam -GENERAL: The patient is alert and oriented x3, not in any acute distress. Well developed, well nourished. Jittery, nervousness with some tremor HEENT: Pupils are round and equally reacting to light. EOMI. No scleral icterus. No conjunctival pallor. Normocephalic, atraumatic. No pharyngeal erythema. No thyromegaly. CARDIOVASCULAR: S1 and S2 present. No murmurs, rubs, or gallops. PULMONARY: Chest is clear to auscultation, no wheezing or crackles. ABDOMEN: Soft, nontender, nondistended, normoactive bowel sounds. No palpable organomegaly. MUSCULOSKELETAL: No joint swelling or deformity. EXTREMITIES: No cyanosis, clubbing, or pedal edema. NEUROLOGICAL: Gross neurological examination did not reveal any focal deficits. SKIN: No rashes. no petechiae. - Labs CBC & Chem 7: 04/05/22 04:28 04/05/22 19:55 Labs: Abnormal Lab Results - Last 24 Hours (Table) 04/05/22 04/05/22 04/05/22 Range/Units 04:28 04:28 06:45 RBC 3.67 L (4.30-5.90) m/uL Hgb 11.9 L (13.0-17.5) gm/dL Hct 35.2 L (39.0-53.0) % Plt Count 123 L (150-450) k/uL Lymphocytes # 0.9 L (1.0-4.8) k/uL Potassium 3.4 L (3.5-5.1) mmol/L Carbon Dioxide 20 L (22-30) mmol/L BUN 5 L (9-20) mg/dL Creatinine 0.50 L (0.66-1.25) mg/dL Calcium 8.0 L (8.4-10.2) mg/dL Delta Bilirubin 0.5 H (0.0-0.2) mg/dL AST 132 H (17-59) U/L ALT 79 H (4-49) U/L Urine Ketones 3+ H (Negative) Assessment and Plan Assessment: Alcohol use disorder with severe delirium tremens Hallucination and agitation secondary to above, rule out intracranial lesions. Altered mental status secondary to metabolic/toxic encephalopathy secondary to both Alcoholic transaminitis Thrombocytopenia most likely secondary to alcohol affect Plan: Continue with IV hydration Continue with vitamins i Continue with CIWA protocol Continue with volume , Librium replace electrolytes was per protocol Pulmonary consult Psychiatric team were consulted and evaluated the patient already Labs and medication were reviewed.. Continue same treatment. Continue with symptomatic treatment. Resume home medication. Monitor labs and vitals. DVT and GI prophylaxis. Further recommendations as per clinical course of the patient DVT prophylaxis: Subcutaneous heparin GI Prophylaxis: Pepcid Prognosis is guarded
[2022-04-06 06:06] LABS: Basophils % (A) 1 %; Eosinophils # (A) 0.1 k/uL (0-0.7); Eosinophils % (A) 3 %; HCT 36.3 % (39.0-53.0); Lymphocytes # (A) 0.9 k/uL (1.0-4.8); Lymphocytes % (A) 22 %; MCH 31.9 pg (25.0-35.0); MCHC 33.1 g/dL (31.0-37.0); MCV 96.2 fL (80.0-100.0); Mean Platelet Volume 8.4; Monocytes # (A) 0.4 k/uL (0-1.0); Monocytes % (A) 10 %; Neutrophils # (A) 2.5 k/uL (1.3-7.7); Neutrophils % (A) 62 %; Platelet Count 119 k/uL (150-450); RBC 3.77 m/uL (4.30-5.90)
[2022-04-06 06:21] LABS: African American GFR (CKD) >90 (>60 ml/min/1.73 sqM); Anion Gap 6 mmol/L; Blood Urea Nitrogen 4 mg/dL (9-20); Calcium 7.8 mg/dL (8.4-10.2); Carbon Dioxide 21 mmol/L (22-30); Chloride 110 mmol/L (98-107); Glucose 97 mg/dL (74-99); Non-African American GFR(CKD) >90 (>60 ml/min/1.73 sqM); Potassium 3.5 mmol/L (3.5-5.1); Sodium 137 mmol/L (137-145)
[2022-04-06] MEDS: SODIUM CHLORIDE 0.9% 1,000 ML IV SCH ×2 (06:30→13:01)
[2022-04-06] MEDS: POTASSIUM CHLORIDE ER 20 MEQ TAB.ER PO SCH ×4 (07:07→13:01)
[2022-04-06] MEDS: MAGNESIUM SULFATE-D5W PMX 1 GM in DEXTROSE/WATER 1 100ML.BAG IVPB SCH ×2 (07:07→10:47)
[2022-04-06] MEDS: chlordiazePOXIDE 25 MG CAP PO SCH ×2 (10:47→14:50)
[2022-04-06] MEDS: HEPARIN SODIUM,PORCINE/PF 5,000 UNIT/0.5 ML SYRINGE SQ SCH (10:48)
[2022-04-06] MEDS: PANTOPRAZOLE 40 MG/10 ML VIAL IVP SCH (10:49)
[2022-04-06] MEDS: THIAMINE 100 MG/ML 2 ML VIAL IVP SCH (10:49)
[2022-04-06] MEDS: LORazepam 2 MG/ML INJ IV PRN (10:59)
--- NOTE | 2022-04-06 12:28 | P.PN ---
Subjective Progress Note Date: 04/06/22 Principal diagnosis: Acute alcohol withdrawal this is a 41-year-old white male, known history of alcohol abuse, patient was sent from [place] for alcohol withdrawal. Patient has been demonstrating episodes of confusion, agitation, and at times tremors and hallucinations. P nasreen apparently was refusing to take medications at the facility where he was sent from.patient was brought into the ER, and apparently he was quite confused, he was requiring restraints, was extremely agitated, his labs were basically unremarkable. Patient tested positive for barbiturates. His alcohol level was less than 10. Patient was admitted to the ICU mostly because he was requiring significant amount of sedation to calm him down, I saw him this morning, the patient seems to be calm, much better compared to how he was described to be on admission. Patient remains on the CIWA protocol, in no distress. He is alert oriented 3, and clearly not agitated but slightly anxious Reevaluated today on 04/06/22, patient remains in the ICU, he is actually an overflow, remains on the CIWA protocol, he is on room air, not in any distress. I will clear the patient to be transferred out of the ICU or even go back to his [facility] facility. Objective - Vital Signs Vital signs: Vital Signs Temp 98 F 04/06/22 08:00 Pulse 76 04/06/22 11:00 Resp 18 04/06/22 11:00 BP 133/102 04/06/22 11:00 Pulse Ox 100 04/06/22 11:00 FiO2 Intake & Output 04/05/22 04/06/22 04/06/22 18:59 06:59 18:59 Intake Total 2408 1830 870 Output Total 1250 300 300 Balance 1158 1530 570 Weight 76.6 kg Intake: IV 1690 1590 620 Invasive Line 2 30 30 Magnesium Sulfate-D5w Pmx 100 100 1 gm In Dextrose/Water 1 100ml.bag @ 100 mls/hr IVPB ONCE ONE Rx#: [id number] Sodium Chloride 0.9% 1, 1560 1560 520 000 ml @ 130 mls/hr IV . Q7H42M [facility] Rx#:[id number] Oral 718 240 250 Output: Urine 1250 300 300 Other: Voiding Method External Catheter External Catheter External Catheter # Bowel Movements 1 0 - Exam Physical Exam: Revealed 41-year-old white male in no distress. Head: Atraumatic normocephalic. HEENT:[Neck is supple.] [No neck masses.] [No thyromegaly.] [No JVD.] Chest: [Clear throughout, no crackles, no rhonchi, no wheezes.] Cardiac Exam: [Normal S1 and S2, no S3 gallop, no murmur.] Abdomen: [Soft, nontender, no megaly, no rebound, no guarding, normal bowel sounds.] Extremities: [No clubbing, no edema, no cyanosis.] Neurological Exam: alert and oriented 3.[No focal neurologic deficit.] psychiatric: Slightly anxious, normal affect, and normal mental status examination. Skin: No rashes - Labs CBC & Chem 7: 04/06/22 05:38 04/06/22 05:38 Labs: Abnormal Lab Results - Last 24 Hours (Table) 04/06/22 04/06/22 Range/Units 05:38 05:38 RBC 3.77 L (4.30-5.90) m/uL Hgb 12.0 L (13.0-17.5) gm/dL Hct 36.3 L (39.0-53.0) % Plt Count 119 L (150-450) k/uL Lymphocytes # 0.9 L (1.0-4.8) k/uL Chloride 110 H (98-107) mmol/L Carbon Dioxide 21 L (22-30) mmol/L BUN 4 L (9-20) mg/dL Creatinine 0.42 L (0.66-1.25) mg/dL Calcium 7.8 L (8.4-10.2) mg/dL Assessment and Plan Assessment: impression: Acute alcohol withdrawal Acute delirium tremens Thrombocytopenia secondary to chronic alcohol use. Recommendation: We'll clear for discharge planning if cleared by other consultants on the case. An admitting physician Continue CIWA protocol. Continue IV fluids. If not transferred to [facility], patient could be transferred to a regular medical floor. We'll follow as needed Time with Patient: Less than 30
[2022-04-06 12:33] VITALS: BP 100/70; PULSE 78; RESP 21; TEMP 97.9
[2022-04-06] MEDS ORDERED: diazePAM 5 MG TAB PO STA (14:14)
--- NOTE | 2022-04-06 20:25 | P.DS ---
Providers Date of admission: 04/04/22 08:24 Attending physician: Henrique Gay MD Consults: 04/04/22 08:07 Consult Physician Routine Consulting Provider: Psychiatry - [facility] Psychiatry Consult Reason/Comments: Hallucinations, alcohol abuse Do you want consulting provider notified?: Yes 04/04/22 09:32 Consult Physician Routine Consulting Provider: Dannie Mccarty Consult Reason/Comments: depression, hallucination, alcohol withdrawal Do you want consulting provider notified?: Yes 04/05/22 01:33 Consult Physician Stat Consulting Provider: Levy Nguyen Consult Reason/Comments: ETOH Do you want consulting provider notified?: Already Contacted 04/05/22 01:34 Consult Physician Routine Consulting Provider: Anuradha Montero Consult Reason/Comments: icu Do you want consulting provider notified?: Already Contacted Primary care physician: Physician Nonstaff Hospital Course: Diagnoses: Alcohol use disorder with severe delirium tremens Hallucination and agitation secondary to above, rule out intracranial lesions. Altered mental status secondary to metabolic/toxic encephalopathy secondary to both Alcoholic transaminitis Thrombocytopenia most likely secondary to alcohol affect Hospital course: This is a pleasant 41 years old male with no known past medical history was sent from [facility] for alcohol withdrawal. On admission patient was agitated confused and he had to be put on restraints till next day where he become more calm with treatment and gradually his back to his basic mentation. Patient was awake alert and oriented 3 for more than 48 hours and back to his normal mentation. CT of the brain was negative. Because of severe delirium tremens patient was admitted to the ICU. However he showed significant improvement. He was treated. CIWA protocol and then mo. Also he received Librium. Today is fully awake and oriented, he has mild tremor, no other complaints, no nausea vomiting and he tolerates diet, no more mild anxiety. From morning's till afternoon he needed one-time dose of Ativan. Patient was to go back to [facility] to finish his detox treatment. I spoke with Monisha from [facility] and she has only for prescription for tapered Librium which provided, she told me physician and [facility] were reevaluated medication. Patient denies any other symptoms, no chest pain or GI or urinary symptoms. Patient also evaluated by pulmonary/critical care attending and psychiatrist and both of them. Him for discharge Problems and management plan were discussed with the patient and he verbalized understanding and acceptance Patient was found stable and can be discharged home in guarded prognosis however he needs follow-up as an outpatient. Patient was instructed to follow up with PCP within one week and patient agrees He has asymptomatic sinus cyst and he was referred to ENT Dr. Gonzalez as an outpatient and he verbalized understanding and acceptance Physical exam -Gen: patient is a AAOx3, no distress. Mild tremor CVS: S1-S2, RRR, no murmur Lungs: B/L CTA, no wheezing Abdomen: soft, no distention, no tenderness, positive bowel sounds Extremity: no leg edema or induration Time spent more than 35 minutes Patient Condition at Discharge: Fair Plan - Discharge Summary Discharge Rx Participant: Yes New Discharge Prescriptions: New chlordiazePOXIDE HCl [Librium] 25 mg PO Q6H #10 cap Continue Acetaminophen Tab [Tylenol] 650 mg PO TID PRN PRN Reason: Fever And/ Or Pain traZODone HCL [Desyrel] 50 - 100 mg PO HS Mag Hydrox/Aluminum Hyd/Simeth [Mylanta Maximum Strength Liq] 30 ml PO Q4H PRN PRN Reason: Indigestion Ibuprofen [Motrin Ib] 600 mg PO Q8H PRN PRN Reason: Pain Hyoscyamine Sulfate [Levsin-Sl] 0.125 mg SL QID PRN PRN Reason: abdominal cramping Docusate [Colace] 100 mg PO BID PRN PRN Reason: Constipation Chlorpheniramine Maleate [Chlor-Trimeton] 4 mg PO Q4H PRN PRN Reason: Allergy Symptoms Magnesium Hydroxide [Milk of Magnesia] 2,400 mg PO BID PRN PRN Reason: Constipation ondansetron HCL [Zofran] 8 mg PO Q6H PRN PRN Reason: Nausea Thiamine [Vitamin B-1] 100 mg PO DAILY PRN PRN Reason: supplement Multivitamins, Thera [Multivitamin (formulary)] 1 tab PO DAILY PRN PRN Reason: vitamin Loperamide [Imodium] 2 - 4 mg PO QID PRN PRN Reason: Diarrhea guaiFENesin [guaiFENesin Oral Solution] 200 mg PO Q4H PRN PRN Reason: Congestion/cough cloNIDine HCL [Catapres] 0.1 - 0.3 mg PO Q4H Calcium/Magnesium/Zinc With Vitamin D 334/134/5mg 1 tab PO TID Discontinued PHENobarbitaL [PHENobarbital] See Taper PO DIRECTED Discharge Medication List Acetaminophen Tab [Tylenol] 650 mg PO TID PRN 04/04/22 [History] Calcium/Magnesium/Zinc With Vitamin D 334/134/5mg 1 tab PO TID 04/04/22 [History] Chlorpheniramine Maleate [Chlor-Trimeton] 4 mg PO Q4H PRN 04/04/22 [History] Docusate [Colace] 100 mg PO BID PRN 04/04/22 [History] Hyoscyamine Sulfate [Levsin-Sl] 0.125 mg SL QID PRN 04/04/22 [History] Ibuprofen [Motrin Ib] 600 mg PO Q8H PRN 04/04/22 [History] Loperamide [Imodium] 2 - 4 mg PO QID PRN 04/04/22 [History] Mag Hydrox/Aluminum Hyd/Simeth [Mylanta Maximum Strength Liq] 30 ml PO Q4H PRN 04/04/22 [History] Magnesium Hydroxide [Milk of Magnesia] 2,400 mg PO BID PRN 04/04/22 [History] Multivitamins, Thera [Multivitamin (formulary)] 1 tab PO DAILY PRN 04/04/22 [History] Thiamine [Vitamin B-1] 100 mg PO DAILY PRN 04/04/22 [History] cloNIDine HCL [Catapres] 0.1 - 0.3 mg PO Q4H 04/04/22 [History] guaiFENesin [guaiFENesin Oral Solution] 200 mg PO Q4H PRN 04/04/22 [History] ondansetron HCL [Zofran] 8 mg PO Q6H PRN 04/04/22 [History] traZODone HCL [Desyrel] 50 - 100 mg PO HS 04/04/22 [History] chlordiazePOXIDE HCl [Librium] 25 mg PO Q6H #10 cap 04/06/22 [Rx] Follow up Appointment(s)/Referral(s): Nonstaff,Physician [Primary Care Provider] - 1-2 days Jagjit Gonzalez MD [STAFF PHYSICIAN] - 1 Week (mucous retension cyst in your maxillary sinuses) Patient Instructions/Handouts: Abuse of Alcohol (DC), Alcohol Withdrawal (DC) Activity/Diet/Wound Care/Special Instructions: heart healthy diet activfity is restricted till you see your doctor we recommend to go to [place] today ,rather than going home to finish your course of detox Discharge Disposition: OTHER INSTITUTION NOT DEFINED
== END 2022-04-06 15:50 | DRG 896 ==
LOC: EC 05:19 → 5NMEDONC 08:24 → 3SCARD 09:25 → 2SICU 04-05 00:58
PROVIDERS: ADMIT Internal Medicine; ATTEND Internal Medicine
DX: F10.231 Alcohol dependence with withdrawal delirium (principal); G92.8 Other toxic encephalopathy; R74.01 Elevation of levels of liver transaminase levels; F41.9 Anxiety disorder, unspecified; E83.42 Hypomagnesemia; F13.231 Sedative, hypnotic or anxiolytic dependence with withdrawal delirium; D69.59 Other secondary thrombocytopenia; Z88.1 Allergy status to other antibiotic agents; Z79.899 Other long term (current) drug therapy; Z78.1 Physical restraint status
CPT/HCPCS: 36415; 70450; 80048; 80053; 80076; 80306; 80320; 81001; 81003; 82140; 83690; 83735; 84132; 85025; 96361; 96365; 96366; 96372; 96375; 99285